=== PATIENT | male | born 1990 | race Caucasian/White ===

== ENCOUNTER 2017-10-29 12:34 | Emergency (ER) | payer OTHER ==
[2017-10-29 13:35] VITALS: BP 143/64; PULSE 87; RESP 15; TEMP 97
[2017-10-29] MEDS ORDERED: DIPH,PERTUS(ACELL)TETVAC-LF 0.5 ML VIAL IM ONE (13:53)
--- NOTE | 2017-10-29 14:11 | XR ---
EXAMINATION TYPE: XR knee complete LT DATE OF EXAM: 10/29/2017 COMPARISON: NONE HISTORY: Pain TECHNIQUE: Four views are submitted. FINDINGS: Joint spaces are preserved. Osseous structures are intact. No acute fracture seen. There is questi on of a tiny intracortical lesion measuring 5 mm within the distal diaphysis of the femur which could be associated with a benign fibrous cortical defect. IMPRESSION: 1. No acute fracture or dislocation.
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
== END 2017-10-29 14:28 | disposition home or self-care (01) ==
LOC: EC 12:34
DX: S81.012A Laceration without foreign body, left knee, initial encounter (principal); Z79.1 Long term (current) use of non-steroidal anti-inflammatories (NSAID); Z91.09 Other allergy status, other than to drugs and biological substances; Z23 Encounter for immunization; W26.0XXA Contact with knife, initial encounter; Y93.89 Activity, other specified; Y92.009 Unspecified place in unspecified non-institutional (private) residence as the place of occurrence of the external cause
CPT/HCPCS: 12001; 90471; 90715; 99283

== ENCOUNTER 2019-02-07 10:19 | Emergency (ER) | payer OTHER, BC ==
[2019-02-07 11:04] VITALS: RESP 18
--- NOTE | 2019-02-07 11:58 | XR ---
EXAMINATION TYPE: XR shoulder complete RT DATE OF EXAM: 02/07/2019 COMPARISON: NONE HISTORY: Pain TECHNIQUE: Shoulder examined in 3 views FINDINGS: The humeral head articulates with the glenoid. The acromio-clavicular junction is normal. No acute fractures or dislocations are evident. A follow up study can be performed 7-10 days from acute trauma for continued pain. IMPRESSION: 1. Normal three-view right Shoulder
--- NOTE | 2019-02-07 11:59 | XR ---
EXAMINATION TYPE: XR cervical spine comp DATE OF EXAM: 02/07/2019 COMPARISON: None HISTORY: Pain TECHNIQUE: Five-view cervical spine FINDINGS: Vertebral body alignment is normal. Disc heights are preserved. Vertebral body heights are preserved. There is some moderate right foraminal stenosis C3-4. No acute osseous abnormality is evident. IMPRESSION: 1. No acute osseous abnormality. 2. Moderate foraminal narrowing right C3-4 level
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
[2019-02-07 12:50] VITALS: BP 105/70; PULSE 68; TEMP 97.7
== END 2019-02-07 13:03 | disposition home or self-care (01) ==
LOC: EC 10:19
DX: S40.021A Contusion of right upper arm, initial encounter (principal); S50.311A Abrasion of right elbow, initial encounter; F17.200 Nicotine dependence, unspecified, uncomplicated; Z91.048 Other nonmedicinal substance allergy status; V28.4XXA Motorcycle driver injured in noncollision transport accident in traffic accident, initial encounter; Y93.55 Activity, bike riding; Y92.410 Unspecified street and highway as the place of occurrence of the external cause
CPT/HCPCS: 72050; 99284

== ENCOUNTER 2019-03-31 17:50 | Emergency (ER) | payer BC ==
[2019-03-31 18:02] VITALS: BP 128/84; PULSE 90; RESP 18; TEMP 98.6
[2019-03-31] MEDS ORDERED: LIDOCAINE 1% INJ 10MG/ML (20 ML MDV) SQ STA (18:30)
--- NOTE | 2019-03-31 18:57 | ED ---
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 Patient was to use cutting plastic with a razor when he cut his thumb. Patient denies any foreign body in wound, states that she did not break. Patient states that he washed out and cut with soap and water after initial laceration. Patient works that he then put Super Glue on wound and went to work. Patient states that the cut broke back open causing him to present to the ED. Patient states that last tetanus was last year. Patient denies any other complaints at this time. Denies any other injury. Systemic: Pt denies fatigue, fever/chills, rash. Pt denies weakness, night sweats, weight loss. Neuro: Pt denies headache, visual disturbances, syncope or pre-syncope. HEENT: Pt denies ocular discharge or irritation, otalgia, rhinorrhea, pharyngitis or notable lymphadenopathy. Cardiopulmonary: Pt denies chest pain, SOB, heart palpitations, dyspnea on exertion. Abdominal/GI: Pt denies abdominal pain, n/v/d. : Pt denies dysuria, burning w/ urination, frequency/urgency. Denies new onset urinary or bowel incontinence. MSK: Pt denies myalgia, loss of strength or function in extremities. Neuro: Pt denies new onset weakness, paresthesias. - Related Data Home Medications Medication Instructions Recorded Confirmed Ibuprofen [Motrin] 800 mg PO DAILY PRN 10/29/17 02/07/19 Allergies Allergy/AdvReac Type Severity Reaction Status Date / Time adhesive Allergy Rash/Hives Verified 03/31/19 18:02 Review of Systems ROS Statement: Those systems with pertinent positive or pertinent negative responses have been documented in the HPI. ROS Other: All systems not noted in ROS Statement are negative. Past Medical History Past Medical History: Hearing Disorder / Deafness History of Any Multi-Drug Resistant Organisms: None Reported Past Surgical History: Ear Surgery Additional Past Surgical History / Comment(s): eye Past Psychological History: No Psychological Hx Reported Smoking Status: Current every day smoker Past Alcohol Use History: Occasional Past Drug Use History: Marijuana General Exam - General Exam Comments Initial Comments: Constitutional: NAD, AOX3, Pt has pleasant affect. HEENT: NC/AT, trachea midline, neck supple, no lymphadenopathy. Posterior pharynx non erythematous, without exudates. External ears appear normal, without discharge. Mucous membranes moist. Eyes PERRLA, EOM intact. There is no scleral icterus. No pallor noted. Cardiopulmonary: RRR, no murmurs, rubs or gallops, no JVD noted. Lungs CTAB in anterior and posterior enrique. No peripheral edema. Abdominal exam: Abdomen soft and non-distended. Abdomen non-tender to palpation in all 4 quadrants. Bowel sounds active in LLQ. No hepatosplenomegaly. No ecchymosis Neuro: CN II-XII grossly intact. No nuchal rigidity. No raccon eyes, no thomason sign, no hemotympanum. No cervical spinal tenderness. MSK: 3 cm laceration noted lateral aspect of palmar left thumb. No ligamentous or bony involvement. There is irrigated with 500 mL normal saline. Full active range of motion of thumb. Flexion and extension intact at ITP joint. Flexion extension rotation intact at MCP joint. Approximated with 4 simple interrupted sutures. No posterior calf tenderness bilaterally, homans sign negative bilaterally. Posterior tibialis and radial pulse +2 bilaterally. Sensation intact in upper and lower extremities. Full active ROM in upper and lower extremities, 5/5 stregnth. Limitations: no limitations Course Vital Signs 03/31/19 17:59 Temperature 98.6 F Pulse Rate 90 Respiratory 18 Rate Blood Pressure 128/84 O2 Sat by Pulse 100 Oximetry Procedures - Laceration Laceration #1 Consent Obtained: verbal consent Indication: laceration Site: hand Size (cm): 3 Description: linear Depth: simple, single layer Anesthetic Used: lidocaine 1% Anesthesia Technique: local infiltration Amount (mls): 4 Pre-repair: wound explored, irrigated extensively (500mL NS ), deep structures intact (no osseous, ligamentous or bony involvement ) Type of Sutures: vicryl Size of Sutures: 5-0 Number of Sutures: 4 Medical Decision Making - Medical Decision Making 28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 Patient was to use cutting plastic with a razor when he cut his thumb. Patient denies any foreign body in wound, states that she did not break. Patient states that he washed out and cut with soap and water after initial laceration. Patient works that he then put Super Glue on wound and went to work. Patient states that the cut broke back open causing him to present to the ED. Patient states that last tetanus was last year. Patient denies any other complaints at this time. Denies any other injury. Patient vital signs stable, afebrile. Physical exam displayed: 3 cm laceration noted lateral aspect of palmar left thumb. No ligamentous or bony involvement. There is irrigated with 500 mL normal saline. Full active range of motion of thumb. Flexion and extension intact at ITP joint. Flexion extension rotation intact at MCP joint. Approximated with 4 simple interrupted sutures. He fell does not display acute pathology. Patient discharge, follow-up with primary care provider in 1-2 days. Patient returned for suture removal. Return precautions discussed, patient was understanding. Case discussed with Dr. Haider. Disposition Clinical Impression: Laceration Disposition: HOME SELF-CARE Condition: Stable Instructions (If sedation given, give patient instructions): Laceration (ED) Additional Instructions: Patient to adhere to previously discussed treatment plan and will take medication(s) as directed. Patient to follow up with PCP in 1-2 days. Patient to return to ED if symptoms do not improve. Please return for suture removal: Hand: 7-10 days Face: 5 days Chest/abdomen: 12-14 days Extremities: 7-10 days Scalp: 7 days Eyebrow: 5-7 days Foot/sole: 12-14 days Please monitor for signs and symptoms of infection including: redness, warmth, drainage, discharge. Please return to ED if these signs or symptoms occur, new signs or symptoms develop or if condition worsens in anyway. Is patient prescribed a controlled substance at d/c from ED?: No Referrals: None,Stated [Primary Care Provider] - 1-2 days
--- NOTE | 2019-03-31 19:15 | XR ---
EXAMINATION TYPE: XR hand complete LT DATE OF EXAM: 03/31/2019 COMPARISON: NONE HISTORY: Thumb laceration TECHNIQUE: 3 views FINDINGS: I see no fracture nor dislocation. Joint spaces are normal. There is no sign of a foreign b jeri. IMPRESSION: Negative left hand exam. Thumb appears intact.
== END 2019-03-31 20:20 | disposition home or self-care (01) ==
LOC: EC 17:50
DX: S61.012A Laceration without foreign body of left thumb without damage to nail, initial encounter (principal); H91.90 Unspecified hearing loss, unspecified ear; F17.200 Nicotine dependence, unspecified, uncomplicated; Z91.048 Other nonmedicinal substance allergy status; W26.8XXA Contact with other sharp object(s), not elsewhere classified, initial encounter; Y92.009 Unspecified place in unspecified non-institutional (private) residence as the place of occurrence of the external cause
CPT/HCPCS: 73130; 99283; 12002; J2001

== ENCOUNTER 2019-10-02 19:17 | Emergency (ER) | payer BC ==
[2019-10-02] MEDS ORDERED: LORazepam 2 MG/ML INJ IM STA ×2 (19:30→20:49)
[2019-10-02 20:20] LABS: Basophils % (A) 1 %; Eosinophils # (A) 0.1 k/uL (0-0.7); Eosinophils % (A) 2 %; HCT 43.8 % (39.0-53.0); HGB 14.7 gm/dL (13.0-17.5); Lymphocytes # (A) 2.4 k/uL (1.0-4.8); Lymphocytes % (A) 34 %; MCH 28.9 pg (25.0-35.0); MCHC 33.6 g/dL (31.0-37.0); MCV 86.1 fL (80.0-100.0); Mean Platelet Volume 6.9; Monocytes # (A) 0.4 k/uL (0-1.0); Monocytes % (A) 6 %; Neutrophils # (A) 3.8 k/uL (1.3-7.7); Neutrophils % (A) 55 %; Platelet Count 266 k/uL (150-450); RBC 5.09 m/uL (4.30-5.90); RDW 13.4 % (11.5-15.5); WBC 6.9 k/uL (3.8-10.6)
[2019-10-02 20:33] LABS: ALT 16 U/L (4-49); AST 24 U/L (17-59); Acetaminophen <10.0 ug/mL; African American GFR (CKD) >90 (>60 ml/min/1.73 sqM); Anion Gap 13 mmol/L; Blood Urea Nitrogen 11 mg/dL (9-20); Calcium 9.5 mg/dL (8.4-10.2); Carbon Dioxide 20 mmol/L (22-30); Chloride 109 mmol/L (98-107); Glucose 85 mg/dL (74-99); Non-African American GFR(CKD) >90 (>60 ml/min/1.73 sqM); Potassium 3.7 mmol/L (3.5-5.1); Sodium 142 mmol/L (137-145)
--- NOTE | 2019-10-02 20:34 | ED ---
Psych HPI - General Source: EMS Mode of arrival: EMS <Ha Gann - Last Filed: 10/02/19 20:53> <Jack Mariscal - Last Filed: 10/03/19 01:54> - General Chief Complaint: Psychiatric Symptoms Stated Complaint: Mental Health Time Seen by Provider: 10/02/19 19:26 - History of Present Illness Initial Comments: This 29-year-old white male presents via EMS after he apparently was drinking at home and then overdose. He apparently was drinking whiskey and took some temazepam. He apparently told the paramedics he only took 2 of the 7.5 mg pills. His however relates that the bottle is empty and there may have been up to 25 of these pills. He was somewhat apprehensive to coming to the hospital but did agree with the restraints with EMS. He apparently did voice some suicidal ideations to someone prehospital. Upon my evaluation he is very upset and wants to leave. He is not offering any significant degree of history. He is trying to walk out of the hospital. He apparently took a swing at one of the hospital guards. He barely does have a history and does present in his dress jacket holding with his ribbons aaron [place] flag with the army hat. EMS also relates that he may have a degree of posttraumatic stress disorder. Patient is not forthcoming with any history and therefore this is very limited and essentially obtained per EMS. (Ha Gann) - Related Data Home Medications Medication Instructions Recorded Confirmed Ibuprofen [Motrin] 800 mg PO DAILY PRN 10/29/17 02/07/19 Allergies Allergy/AdvReac Type Severity Reaction Status Date / Time adhesive Allergy Rash/Hives Verified 03/31/19 18:02 Review of Systems ROS Other: All systems not noted in ROS Statement are negative. <Ha Gann - Last Filed: 10/02/19 20:53> ROS Other: All systems not noted in ROS Statement are negative. <Jack Mariscal - Last Filed: 10/03/19 01:54> ROS Statement: Those systems with pertinent positive or pertinent negative responses have been documented in the HPI. Past Medical History Past Medical History: Hearing Disorder / Deafness History of Any Multi-Drug Resistant Organisms: None Reported Past Surgical History: Ear Surgery Additional Past Surgical History / Comment(s): eye Past Psychological History: No Psychological Hx Reported Smoking Status: Current every day smoker Past Alcohol Use History: Occasional Past Drug Use History: Marijuana <Ha Gann - Last Filed: 10/02/19 20:53> General Exam <Ha Gann - Last Filed: 10/02/19 20:53> - General Exam Comments Initial Comments: GENERAL: The patient is well nourished and well hydrated. VITAL SIGNS: Heart rate, blood pressure, respiratory rate reviewed as recorded in nurse's notes. EYES: Pupils are round and reactive. Extraocular movements are intact. No conjunctival / lid redness or swelling. ENT: No external evidence of injury, swelling, or ecchymosis. Airway is patent. Throat is clear. NECK: Nontender. No swelling or evidence of injury. No subcutaneous emphysema. Trachea is midline. No thyroid mass. HEART: Regular rate and rhythm. Good peripheral pulses. LUNGS/CHEST: Breath sounds clear and equal bilaterally. No rales, rhonchi, or wheezes. No ecchymosis, subcutaneous emphysema, or tenderness. ABDOMEN: Abdomen soft without tenderness. No palpable masses or organomegaly. No peritoneal signs. No abdominal wall swelling or ecchymosis. EXTREMITIES: No extremity tenderness. Normal muscle tone and function. No thoracolumbar tenderness. NEUROLOGIC: Sensation is grossly intact. Cranial nerve exam reveals face is symmetrical, tongue is midline, speech is clear. SKIN: No abrasions or ecchymosis is noted. No induration or masses noted. PSYCHIATRIC: alert but quite agitated. He is not very cooperative with examination and discussion. He later becomes extremely agitated stating that he wants to go home and is swinging at the staff and screaming. (Ha Gann) Course Vital Signs 10/02/19 10/02/19 10/03/19 21:13 23:00 01:20 Temperature 98.1 F Pulse Rate 82 73 81 Respiratory 17 16 17 Rate Blood Pressure 88/81 93/53 90/53 O2 Sat by Pulse 98 99 99 Oximetry Medical Decision Making - Lab Data Result diagrams: 10/02/19 19:59 10/02/19 19:59 <Ha Gann - Last Filed: 10/02/19 20:53> - Lab Data Result diagrams: 10/02/19 19:59 10/02/19 19:59 <Jack Mariscal - Last Filed: 10/03/19 01:54> - Medical Decision Making the patient was seen and examined. Diagnostics were ordered. His alcohol level came back elevated. the EKG shows a normal sinus rhythm at a rate of 94. There is no acute ST-T wave changes identified. The IN intervals 180, the QRS duration is 88, and the QTC intervals 455. He initially tried to walk out and the staff was able to talk to him to come back to get evaluated. He later became extremely agitated and apparently swung at one of the staff. He was physically restrained. 2 mg of Ativan was ordered due to the significant degree of agitation. The EKG was done which shows a normal sinus rhythm with no acute ST-T wave changes. The IN, QRS and QTC intervals were all within normal limits. Elopement precautions were taken. At this point in time, it appears that he is intoxicated. There certainly may be underlying psychiatric problems including suicidal ideations and depression. It is felt as though further sobering as necessary and psychiatry is also consulted. the patient did require physical restraints. Repeat examination approximately one hour after physical restraints were applied does show that the patient still is extremely agitated. He receives another 2 mg of Ativan IM. Restraints are continued at this time. Further care is deferred to oncoming physician. (Ha Gann) - Lab Data Lab Results 10/02/19 10/02/19 10/02/19 Range/Units 19:59 19:59 19:59 WBC 6.9 (3.8-10.6) k/uL RBC 5.09 (4.30-5.90) m/uL Hgb 14.7 (13.0-17.5) gm/dL Hct 43.8 (39.0-53.0) % MCV 86.1 (80.0-100.0) fL MCH 28.9 (25.0-35.0) pg MCHC 33.6 (31.0-37.0) g/dL RDW 13.4 (11.5-15.5) % Plt Count 266 (150-450) k/uL Neutrophils % 55 % Lymphocytes % 34 % Monocytes % 6 % Eosinophils % 2 % Basophils % 1 % Neutrophils # 3.8 (1.3-7.7) k/uL Lymphocytes # 2.4 (1.0-4.8) k/uL Monocytes # 0.4 (0-1.0) k/uL Eosinophils # 0.1 (0-0.7) k/uL Basophils # 0.0 (0-0.2) k/uL Sodium 142 (137-145) mmol/L Potassium 3.7 (3.5-5.1) mmol/L Chloride 109 H (98-107) mmol/L Carbon Dioxide 20 L (22-30) mmol/L Anion Gap 13 mmol/L BUN 11 (9-20) mg/dL Creatinine 0.97 (0.66-1.25) mg/dL Est GFR (CKD-EPI)AfAm >90 (>60 ml/min/1.73 sqM) Est GFR (CKD-EPI)NonAf >90 (>60 ml/min/1.73 sqM) Glucose 85 (74-99) mg/dL Calcium 9.5 (8.4-10.2) mg/dL AST 24 (17-59) U/L ALT 16 (4-49) U/L Salicylates 1.0 mg/dL Urine Opiates Screen Not Detected (NotDetected) Ur Oxycodone Screen Not Detected (NotDetected) Urine Methadone Screen Not Detected (NotDetected) Ur Propoxyphene Screen Not Detected (NotDetected) Acetaminophen <10.0 ug/mL Ur Barbiturates Screen Not Detected (NotDetected) U Tricyclic Antidepress Not Detected (NotDetected) Ur Phencyclidine Scrn Not Detected (NotDetected) Ur Amphetamines Screen Not Detected (NotDetected) U Methamphetamines Scrn Not Detected (NotDetected) U Benzodiazepines Scrn Detected H (NotDetected) Urine Cocaine Screen Not Detected (NotDetected) U Marijuana (THC) Screen Detected H (NotDetected) Serum Alcohol 173 mg/dL Disposition <Ha Gann - Last Filed: 10/02/19 20:53> Is patient prescribed a controlled substance at d/c from ED?: No <Jack Mariscal - Last Filed: 10/03/19 01:54> Clinical Impression: Depression, Suicidal ideation, Alcohol intoxication Disposition: HOME SELF-CARE Condition: Fair Referrals: Chepe Jerez MD [Primary Care Provider] - 1-2 days
[2019-10-02 20:44] LABS: Alcohol 173 mg/dL
[2019-10-02 20:57] LABS: Amphetamine Screen,Urine Not Detected (NotDetected); Barbiturate Screen,Urine Not Detected (NotDetected); Benzodiazepines Screen,Urine Detected (NotDetected); Cocaine Screen,Urine Not Detected (NotDetected); Methadone Screen, Urine Not Detected (NotDetected); Opiate Screen,Urine Not Detected (NotDetected); Oxycodone Screen, Urine Not Detected (NotDetected); Phencyclidine Screen,Urine Not Detected (NotDetected); Tricyclic Antidepressant,Urine Not Detected (NotDetected); Urn Cannabinoid Scrn Detected (NotDetected)
[2019-10-02] MEDS ORDERED: SODIUM CHLORIDE 0.9% 1,000 ML IV STA (23:06)
[2019-10-03 02:26] VITALS: BP 101/62; PULSE 78; RESP 18; TEMP 97.8
== END 2019-10-03 02:26 | disposition home or self-care (01) ==
LOC: EC 19:17
DX: F32.9 Major depressive disorder, single episode, unspecified (principal); F10.129 Alcohol abuse with intoxication, unspecified; R45.851 Suicidal ideations; F17.200 Nicotine dependence, unspecified, uncomplicated; Z91.048 Other nonmedicinal substance allergy status; Z53.8 Procedure and treatment not carried out for other reasons; Z78.1 Physical restraint status
CPT/HCPCS: 82075; 36415; 93005; 80048; 84450; 84460; 85025; 80306; 83520; 80329; 80320; 99285; 96360; 96361 ×2; 96372; J2060

== ENCOUNTER 2019-10-03 18:43 | Inpatient (IN) | payer OTHER, BC ==
--- NOTE | 2019-10-03 19:28 | ED ---
Psych HPI - General Source: patient, RN notes reviewed, old records reviewed Mode of arrival: ambulatory - History of Present Illness MD Complaint: suicidal ideation, feels depressed -: days(s) Associated Psychiatric Symptoms: depression, suicidal ideation History of same: Yes Quality: constant Improves With: none Worsens With: none Context: recent alcohol abuse Associated Symptoms: denies other symptoms Treatments Prior to Arrival: placed on mental health hold If Self Harm: admits thoughts of self harm <Ramana Chavez - Last Filed: 10/03/19 20:59> <Ha Roach - Last Filed: 10/04/19 00:52> - General Chief Complaint: Psychiatric Symptoms Stated Complaint: EPS eval Time Seen by Provider: 10/03/19 19:00 - History of Present Illness Initial Comments: This is a 29-year-old male the ER for evaluation presents [facility] psychi atric: Her department yesterday but does not remember being in the department severely intoxicated and took an overdose on temazepam yesterday. Patient presents today for evaluation of sick illness denying to overdosed today. Patient was at home last night. He remains suicidal here in the ER he did cut himself today. No drugs or alcohol prior to arrival (Ramana Chavez) - Related Data Home Medications Medication Instructions Recorded Confirmed Ibuprofen [Motrin] 800 mg PO DAILY PRN 10/29/17 10/03/19 Allergies Allergy/AdvReac Type Severity Reaction Status Date / Time adhesive Allergy Rash/Hives Verified 10/03/19 22:28 Review of Systems ROS Other: All systems not noted in ROS Statement are negative. <Ramana Chavez - Last Filed: 10/03/19 20:59> ROS Other: All systems not noted in ROS Statement are negative. <Ha Roach - Last Filed: 10/04/19 00:52> ROS Statement: Those systems with pertinent positive or pertinent negative responses have been documented in the HPI. Past Medical History Past Medical History: Hearing Disorder / Deafness History of Any Multi-Drug Resistant Organisms: None Reported Past Surgical History: Ear Surgery Additional Past Surgical History / Comment(s): eye Past Psychological History: No Psychological Hx Reported Smoking Status: Current every day smoker Past Alcohol Use History: Occasional Past Drug Use History: Marijuana <Ramana Chavez - Last Filed: 10/03/19 20:59> General Exam Limitations: no limitations General appearance: alert, in no apparent distress Head exam: Present: atraumatic, normocephalic, normal inspection Eye exam: Present: normal appearance, PERRL, EOMI. Absent: scleral icterus, conjunctival injection, periorbital swelling ENT exam: Present: normal exam, mucous membranes moist Neck exam: Present: normal inspection. Absent: tenderness, meningismus, lymphadenopathy Respiratory exam: Present: normal lung sounds bilaterally. Absent: respiratory distress, wheezes, rales, rhonchi, stridor Cardiovascular Exam: Present: normal rhythm, tachycardia, normal heart sounds. Absent: systolic murmur, diastolic murmur, rubs, gallop, clicks GI/Abdominal exam: Present: soft, normal bowel sounds. Absent: distended, tenderness, guarding, rebound, rigid Extremities exam: Present: normal inspection, full ROM, normal capillary refill. Absent: tenderness, pedal edema, joint swelling, calf tenderness Back exam: Present: normal inspection Neurological exam: Present: alert, oriented X3, CN II-XII intact Psychiatric exam: Present: normal affect, normal mood Skin exam: Present: warm, dry, intact, normal color. Absent: rash <Ramana Chavez - Last Filed: 10/03/19 20:59> Course <Ramana Chavez - Last Filed: 10/03/19 20:59> Vital Signs 10/03/19 10/03/19 18:55 23:05 Temperature 98.3 F 98.3 F Pulse Rate 114 H 76 Respiratory 16 16 Rate Blood Pressure 137/73 108/61 O2 Sat by Pulse 97 96 Oximetry - Reevaluation(s) Reevaluation #1: 10/03/19 21:01 Medical clear for psychiatric evaluation (Ramana Chavez) Medical Decision Making - Lab Data Result diagrams: 10/03/19 22:24 10/03/19 22:24 <Ha Roach - Last Filed: 10/04/19 00:52> - Medical Decision Making 29-year-old male post care was signed out at shift change awaiting EPS evaluation for depression, suicidal ideation and suicide attempt. Patient did cut his left wrist and states he took some medication and attempt overdose. This was greater than 12 hours prior to arrival. He is alert and oriented. He is medically cleared and evaluated by EPS. He will be admitted to this institution for further psychiatric evaluation and treatment. (Ha Roach) - Lab Data Lab Results 10/03/19 10/03/19 Range/Units 22:24 22:24 WBC 9.9 (3.8-10.6) k/uL RBC 4.76 (4.30-5.90) m/uL Hgb 14.6 (13.0-17.5) gm/dL Hct 41.1 (39.0-53.0) % MCV 86.4 (80.0-100.0) fL MCH 30.8 (25.0-35.0) pg MCHC 35.6 (31.0-37.0) g/dL RDW 13.5 (11.5-15.5) % Plt Count 276 (150-450) k/uL Neutrophils % 63 % Lymphocytes % 28 % Monocytes % 6 % Eosinophils % 2 % Basophils % 1 % Neutrophils # 6.2 (1.3-7.7) k/uL Lymphocytes # 2.7 (1.0-4.8) k/uL Monocytes # 0.6 (0-1.0) k/uL Eosinophils # 0.2 (0-0.7) k/uL Basophils # 0.1 (0-0.2) k/uL Sodium 139 (137-145) mmol/L Potassium 3.7 (3.5-5.1) mmol/L Chloride 106 (98-107) mmol/L Carbon Dioxide 22 (22-30) mmol/L Anion Gap 11 mmol/L BUN 13 (9-20) mg/dL Creatinine 0.91 (0.66-1.25) mg/dL Est GFR (CKD-EPI)AfAm >90 (>60 ml/min/1.73 sqM) Est GFR (CKD-EPI)NonAf >90 (>60 ml/min/1.73 sqM) Glucose 87 (74-99) mg/dL Calcium 9.4 (8.4-10.2) mg/dL Total Bilirubin 0.9 (0.2-1.3) mg/dL AST 25 (17-59) U/L ALT 17 (4-49) U/L Alkaline Phosphatase 73 (38-126) U/L Total Protein 7.0 (6.3-8.2) g/dL Albumin 4.1 (3.5-5.0) g/dL Salicylates <1.0 mg/dL Acetaminophen <10.0 ug/mL Serum Alcohol <10 mg/dL Disposition <Ramana Chavez - Last Filed: 10/03/19 20:59> Is patient prescribed a controlled substance at d/c from ED?: No Decision to Admit Reason: Admit from EC Decision Date: 10/04/19 Decision Time: 00:52 <Ha Roach - Last Filed: 10/04/19 00:52> Clinical Impression: Suicidal ideation, Depression Disposition: ADMITTED IP TO THIS HOSP Condition: Stable Referrals: Chepe Jerez MD [Primary Care Provider] - 1-2 days
[2019-10-03 22:41] LABS: Basophils # (A) 0.1 k/uL (0-0.2); Basophils % (A) 1 %; Eosinophils # (A) 0.2 k/uL (0-0.7); Eosinophils % (A) 2 %; HCT 41.1 % (39.0-53.0); HGB 14.6 gm/dL (13.0-17.5); Lymphocytes # (A) 2.7 k/uL (1.0-4.8); Lymphocytes % (A) 28 %; MCH 30.8 pg (25.0-35.0); MCHC 35.6 g/dL (31.0-37.0); MCV 86.4 fL (80.0-100.0); Mean Platelet Volume 6.8; Monocytes # (A) 0.6 k/uL (0-1.0); Monocytes % (A) 6 %; Neutrophils # (A) 6.2 k/uL (1.3-7.7); Neutrophils % (A) 63 %; Platelet Count 276 k/uL (150-450); RBC 4.76 m/uL (4.30-5.90); RDW 13.5 % (11.5-15.5); WBC 9.9 k/uL (3.8-10.6)
[2019-10-03 22:49] LABS: ALT 17 U/L (4-49); AST 25 U/L (17-59); Acetaminophen <10.0 ug/mL; African American GFR (CKD) >90 (>60 ml/min/1.73 sqM); Albumin 4.1 g/dL (3.5-5.0); Alcohol <10 mg/dL; Alkaline Phosphatase 73 U/L (38-126); Anion Gap 11 mmol/L; Blood Urea Nitrogen 13 mg/dL (9-20); Calcium 9.4 mg/dL (8.4-10.2); Carbon Dioxide 22 mmol/L (22-30); Chloride 106 mmol/L (98-107); Glucose 87 mg/dL (74-99); Non-African American GFR(CKD) >90 (>60 ml/min/1.73 sqM); Potassium 3.7 mmol/L (3.5-5.1); Salicylate <1.0 mg/dL; Sodium 139 mmol/L (137-145); Total Bilirubin 0.9 mg/dL (0.2-1.3)
[2019-10-04] MEDS ORDERED: MAG HYDROX/AL HYDROX/SIMETH 30 ML CUP PO PRN (03:58)
[2019-10-04] MEDS ORDERED: MAGNESIUM HYDROXIDE 2,400 MG/10 ML CUP PO PRN (03:58)
[2019-10-04] MEDS ORDERED: LORazepam 1 MG TAB PO PRN (03:58)
[2019-10-04] MEDS ORDERED: ZIPRASIDONE 20 MG VIAL IM PRN (03:58)
[2019-10-04] MEDS: NICOTINE 14MG/24HR PATCH TRANSDERM SCH (09:27)
--- NOTE | 2019-10-04 11:01 | P.CONS ---
History of Present Illness - History of Present Illness 29-year-old male was admitted to the emergency room to the mental health unit. This is the second visit this week. Patient states she's going through divorce. Patient history of chronic back pain from injury. Patient also has hearing deficits.. Patient is smoker. Patient stated he took medication and has a superficial laceration to his left wrist Review of Systems Musculoskeletal: Reports low back pain Psychiatric: Reports depression, Reports hopelessness, Reports suicidal ideation Past Medical History Past Medical History: Hearing Disorder / Deafness History of Any Multi-Drug Resistant Organisms: None Reported Past Surgical History: Ear Surgery Additional Past Surgical History / Comment(s): eye Past Psychological History: No Psychological Hx Reported Smoking Status: Current every day smoker Past Alcohol Use History: Occasional Past Drug Use History: Marijuana Medications and Allergies Home Medications Medication Instructions Recorded Confirmed Type Ibuprofen [Motrin] 800 mg PO DAILY PRN 10/29/17 10/04/19 History Allergies Allergy/AdvReac Type Severity Reaction Status Date / Time adhesive Allergy Rash/Hives Verified 10/04/19 07:07 Physical Exam Vitals: Vital Signs Temp Pulse Pulse Resp BP BP Pulse Ox 10/04/19 04:33 98.2 F 65 14 119/73 97 10/03/19 23:05 98.3 F 76 16 108/61 96 10/03/19 18:55 98.3 F 114 H 16 137/73 97 Intake and Output 10/03/19 10/04/19 10/04/19 22:59 06:59 14:59 Other: Weight 99.79 kg 97.097 kg - Constitutional General appearance: mild distress - EENT Eyes: PERRLA ENT: hard of hearing - Neck Neck: normal ROM - Respiratory Respiratory: bilateral: CTA - Cardiovascular Rhythm: regular - Gastrointestinal General gastrointestinal: soft - Integumentary Integumentary: normal - Neurologic Neurologic: CNII-XII intact - Musculoskeletal Musculoskeletal: gait normal - Psychiatric Flat affect no eye contact. Said demeanor Psychiatric: A&O x's 3 Results CBC & Chem 7: 10/03/19 22:24 10/03/19 22:24 Assessment and Plan Plan: Assessment Suicidal ideation with major depression History of chronic back pain injury Smoker Hearing deficit Plan We'll monitor patient
[2019-10-04] MEDS: IBUPROFEN 800 MG TAB PO PRN ×2 (13:37→21:07)
[2019-10-04] MEDS ORDERED: MELATONIN 3 MG TABLET PO PRN (14:26)
--- NOTE | 2019-10-04 15:00 | P.HP ---
Psychiatric H&P - . H&P Date: 10/04/19 History & Physical: Allergies Allergy/AdvReac Type Severity Reaction Status Date / Time adhesive Allergy Rash/Hives Verified 10/04/19 07:07 Vital Signs Temp 98.2 F 10/04/19 04:33 Pulse 65 10/04/19 04:33 Resp 14 10/04/19 04:33 BP 119/73 10/04/19 04:33 Pulse Ox 97 10/04/19 04:33 Intake & Output 10/03/19 10/04/19 10/04/19 18:59 06:59 18:59 Weight 99.79 kg 97.097 kg Laboratory Last Values WBC 9.9 k/uL (3.8-10.6) 10/03/19 22:24 RBC 4.76 m/uL (4.30-5.90) 10/03/19 22:24 Hgb 14.6 gm/dL (13.0-17.5) 10/03/19 22:24 Hct 41.1 % (39.0-53.0) 10/03/19 22:24 MCV 86.4 fL (80.0-100.0) 10/03/19 22:24 MCH 30.8 pg (25.0-35.0) 10/03/19 22:24 MCHC 35.6 g/dL (31.0-37.0) 10/03/19 22:24 RDW 13.5 % (11.5-15.5) 10/03/19 22:24 Plt Count 276 k/uL (150-450) 10/03/19 22:24 Neutrophils % 63 % 10/03/19 22:24 Lymphocytes % 28 % 10/03/19 22:24 Monocytes % 6 % 10/03/19 22:24 Eosinophils % 2 % 10/03/19 22:24 Basophils % 1 % 10/03/19 22:24 Neutrophils # 6.2 k/uL (1.3-7.7) 10/03/19 22:24 Lymphocytes # 2.7 k/uL (1.0-4.8) 10/03/19 22:24 Monocytes # 0.6 k/uL (0-1.0) 10/03/19 22:24 Eosinophils # 0.2 k/uL (0-0.7) 10/03/19 22:24 Basophils # 0.1 k/uL (0-0.2) 10/03/19 22:24 Sodium 139 mmol/L (137-145) 10/03/19 22:24 Potassium 3.7 mmol/L (3.5-5.1) 10/03/19 22:24 Chloride 106 mmol/L (98-107) 10/03/19 22:24 Carbon Dioxide 22 mmol/L (22-30) 10/03/19 22:24 Anion Gap 11 mmol/L 10/03/19 22:24 BUN 13 mg/dL (9-20) 10/03/19 22:24 Creatinine 0.91 mg/dL (0.66-1.25) 10/03/19 22:24 Est GFR (CKD-EPI)AfAm >90 (>60 ml/min/1.73 sqM) 10/03/19 22:24 Est GFR (CKD-EPI)NonAf >90 (>60 ml/min/1.73 sqM) 10/03/19 22:24 Glucose 87 mg/dL (74-99) 10/03/19 22:24 Calcium 9.4 mg/dL (8.4-10.2) 10/03/19 22:24 Total Bilirubin 0.9 mg/dL (0.2-1.3) 10/03/19 22:24 AST 25 U/L (17-59) 10/03/19 22:24 ALT 17 U/L (4-49) 10/03/19 22:24 Alkaline Phosphatase 73 U/L (38-126) 10/03/19 22:24 Total Protein 7.0 g/dL (6.3-8.2) 10/03/19 22:24 Albumin 4.1 g/dL (3.5-5.0) 10/03/19 22:24 Salicylates <1.0 mg/dL 10/03/19 22:24 Acetaminophen <10.0 ug/mL 10/03/19 22:24 Serum Alcohol <10 mg/dL 10/03/19 22:24 10/04/19 14:50 IDENTIFYING DATA: Patient is a 29-year-old male who currently lives with his ex-, has 5 kids and works as a preventative maintenance technician. HPI: Patient presented to the hospital twice this past week, initially for intoxication and a legitimate overdose on temazepam and was discharged home after evaluation and returned the next day with increase in depression and suicidal ideations. Patient claims that he has been feeling an increase in his depression and anxiety for the past week and also suicidal thoughts as he cut his wrist in a suicide attempt earlier. Patient claims that he was in the [employer] in 2009 until 2013 in [facility] and was in active combat. He claims that since 2012 he has been feeling depressed and having PTSD symptoms including anxiety and intrusive thoughts. Patient claims that "I feel very low and mid dumb decisions". Patient spoke about going through a divorce at this time with his and they have been split since August and have been trying to work on their relationship since then. He states that "she is in love with her ask and is nothing I can do about it". Patient has poor eye contact and a depressed affect. He denies any guns or weapons in the dose. He was concerned and preoccupied during the interview about "losing my family". He endorsed anxiety, guilt, PTSD symptoms including recurring thoughts and nightmares night nightly. He states he gets 1-2 hours of sleep per night. Patient denies any suicidal or homicidal ideations intent or plan. At this time patient denies any auditory or visual hallucinations. Patient admits to using alcohol in the past couple of days, increasing his drinking of whiskey. He states that his last drink was 2 nights ago. He admits to smoking cigarettes daily and smoking marijuana daily, greater than 1 joint per day. PAST PSYCHIATRIC HISTORY: Patient states that he has never seen a psychiatrist before. Patient claims that he was following up at the [facility] this primary care physician who was giving him temazepam for sleep. Patient denies any previous psychiatric admits in the past. He denies any suicide attempts in the past. PMH: Hearing disorder, chronic pain ALLERGIES: as per EMR CHEMICAL DEPENDENCY HISTORY: as per HPI FAMILY PSYCHIATRIC/SUBSTANCE USE HISTORY: States that depression is prevalent in his family. SOCIAL HISTORY: He claims that he was born and raised in [place] [facility] and currently is working on his associates degree in [employer] and electrical engineering at [employer]. Patient states that he was in the [employer] from 2009 2013 and served in [facility] and was an active combat. MENTAL STATUS EXAM: General Appearance: [Patient appears to be stated age is alert, attempts to cooperate and has poor hygiene and grooming. Patient has poor eye contact looking at the ground and slouched over.] Behavior: Patient is calmly seated without any agitated behavior. Speech: Patient's speech is fluent and nonpressured. Soft-spoken. Mood/Affect: Patient reports their mood is [depressed] and anxious, affect is congruent and constricted. Suicidality/Homicidality: Patient denies having any suicidal or homicidal ideation intent or plan. Perceptions: Patient denies any auditory or visual hallucinations. Though content/process: There is no evidence of any delusional thought content and thought process is linear and goal-directed. Patient is preoccupied about losing his family. [place]. Memory and concentration: AOX3, grossly intact for the purposes of this session. Can spell "WORLD" backwards Judgment and insight: poor/impulsive. STRENGTHS/WEAKNESSES: strength is that patient is resilient, weaknesses that patient is impulsive and has poor judgment. INTELLECT: average IMPRESSIONS: Major depressive disorder, without psychotic features History of PTSD Alcohol abuse Cannabis use disorder Nicotine dependence PLAN: -Patient is admitted under voluntary status to MHU for stabilization of psychiatric symptoms and safety. Patient signed adult voluntary form and medication consent and is placed in patient's chart. -Medications : Will start patient on Zoloft 50 mg daily for mood/anxiety, trazodone 50 mg daily at bedtime for insomnia/mood. We'll also start melatonin when necessary for sleep. -Ativan and Geodon PRN for agitation/aggression -CIWA for etoh w/d -awaiting UDS -Patient was informed of the risks, benefits and side effects of the medication and patient verbally consented to taking the medications. Patient signed med consent form and was placed in chart. -NRT - nicotine patch - on board for discharge planning 10/04/19 15:00
[2019-10-04] MEDS: SERTRALINE 50 MG TAB PO SCH (15:46)
[2019-10-04] MEDS: traZODone HCL 50 MG TAB PO SCH (21:07)
[2019-10-05 06:56] VITALS: RESP 16
[2019-10-05] MEDS: NICOTINE 14MG/24HR PATCH TRANSDERM SCH (08:34)
[2019-10-05] MEDS: SERTRALINE 50 MG TAB PO SCH (08:34)
[2019-10-05] MEDS: IBUPROFEN 800 MG TAB PO PRN ×2 (08:37→20:55)
[2019-10-05 11:20] LABS: Bilirubin, Delta 0.2 mg/dL (0.0-0.2); Bilirubin,Unconjugated 0.5 mg/dL (0.0-1.1); Total Bilirubin 0.7 mg/dL (0.2-1.3); Total Protein 7.1 g/dL (6.3-8.2)
[2019-10-05] MEDS: BACITRACIN 500 UNIT/GM OINT 28.4 GM TUBE TOPICAL SCH ×2 (11:42→20:55)
--- NOTE | 2019-10-05 13:52 | P.PN ---
Progress Note - Text Progress Note Date: 10/05/19 Subjective: Patient was seen taking part in group after lunch and was agreeable to speak to instructional writer in the office. Patient states that he feels his anxiety and mood have been gradually improving on the current medication and states that "I actually got a much better sleep last night". He states that he awoke once and was having recurring thoughts related to his PTSD and trauma however claims that he is able to go back to sleep and was awakened in the morning for vitals and for breakfast. Patient reflected back on how he was when he came into the hospital and how now he states that he is much more "calmer" and states that "I don't want to do anything down at home that's why need to work on myself". Patient spoke about his main motivation being his kids to get better. Patient asked about potential discharge soon. He states that he's been going to groups has a fair appetite. He did claim that he did feel mild nausea from the Zoloft and wants to continue at the same dose at this time. At this time patient denies any suicidal or homicidal ideations, intent or plan. Patient denies any auditory or visual hallucinations and does not endorse any paranoia. MENTAL STATUS EXAM: General Appearance: Patient appears to be stated age is alert, attempts to cooperate and has improving hygiene and grooming. Patient has improving eye contact. Behavior: Patient is calmly seated without any agitated behavior. Speech: Patient's speech is fluent and nonpressured. Soft-spoken. Mood/Affect: Patient reports their mood is depressed and anxious, mildly improving, affect is congruent and constricted. Suicidality/Homicidality: Patient denies having any suicidal or homicidal ideation intent or plan. Perceptions: Patient denies any auditory or visual hallucinations. Though content/process: There is no evidence of any delusional thought content and thought process is linear and goal-directed. More future oriented. Memory and concentration: AOX3, grossly intact for the purposes of this session. Can spell "WORLD" backwards Judgment and insight: poor/impulsive, mildly improving. Assessment: Major depressive disorder, without psychotic features History of PTSD Alcohol abuse Cannabis use disorder Nicotine dependence PLAN: -Patient is admitted under voluntary status to [facility] for stabilization of psychiatric symptoms and safety. Patient signed adult voluntary form and medication consent and is placed in patient's chart. -Medications : Will continue with Zoloft 50 mg daily for mood/anxiety, continue with trazodone 50 mg daily at bedtime for insomnia/mood. Continue with melatonin when necessary for sleep. -Ativan and Geodon PRN for agitation/aggression -CIWA for etoh w/d. Vital signs appear to be stable. -Antibiotic ointment for self-inflicted wound on arm. -NRT - nicotine patch -SW on board for discharge planning. Likely discharge back home in 2-3 days.
[2019-10-05 17:12] LABS: Amorphous Sediment,Urine Rare /hpf; Appearance,Urine Cloudy (Clear); Bacteria,Urine Rare /hpf; Bilirubin,Urine Negative (Negative); Blood,Urine Negative (Negative); Color,Urine Yellow; Glucose,Urine (UA) Negative (Negative); Ketones,Urine Trace (Negative); Leukocyte Esterase,Urine Negative (Negative); Mucus,Urine Few /hpf; Nitrite,Urine Negative (Negative); Protein,Urine 1+ (Negative); RBC,Urine 5 /hpf (0-5); Specific Gravity,Urine 1.035 (1.001-1.035); WBC,Urine 3 /hpf (0-5)
[2019-10-05 19:12] LABS: Hemoglobin A1C 4.8 % (4.0-6.0)
[2019-10-05] MEDS: traZODone HCL 50 MG TAB PO SCH (20:55)
[2019-10-06] MEDS: NICOTINE 14MG/24HR PATCH TRANSDERM SCH (08:00)
[2019-10-06] MEDS: BACITRACIN 500 UNIT/GM OINT 28.4 GM TUBE TOPICAL SCH (08:00)
[2019-10-06] MEDS: SERTRALINE 50 MG TAB PO SCH (08:00)
[2019-10-06] MEDS: IBUPROFEN 800 MG TAB PO PRN (08:00)
[2019-10-06] MEDS: ACETAMINOPHEN TAB 325 MG TAB PO PRN ×2 (10:51→21:30)
[2019-10-06] MEDS ORDERED: SERTRALINE 50 MG TAB PO ONE (11:00)
--- NOTE | 2019-10-06 11:31 | P.PN ---
Progress Note - Text Progress Note Date: 10/06/19 Subjective: Patient was seen after morning group and was agreeable to speak to telegraphic typewriter operator in the office. Patient states that he feels his anxiety and mood have been gradually improving however states that yesterday he had a setback. He states that his and mother came to visit him during visitation hours. He states that the visit with his mom went well and she is supportive however with his he claims that it is difficult to see her and know that they are proceeding with a divorce. He spoke about their relationship further and the difficulties they have endured. He claims that "she is my rock and now I don't have anybody". Patient claims that he is trying to take care of himself so he can care for his kids. Patient spoke about trying to go to groups and participate as best as he can. He states that he is eating well. He claims that he slept poorly last night and was requesting to have his medications increased at this time. Patient spoke about his main motivation being his kids to get better. At this time patient denies any suicidal or homicidal ideations, intent or plan. Patient denies any auditory or visual hallucinations and does not endorse any paranoia. MENTAL STATUS EXAM: General Appearance: Patient appears to be stated age is alert, attempts to cooperate and has improving hygiene and grooming. Patient has fair eye contact. Behavior: Patient is calmly seated without any agitated behavior. Speech: Patient's speech is fluent and nonpressured. Soft-spoken. Mood/Affect: Patient reports their mood is depressed and anxious, mildly improving, affect is congruent and depressed affect. Suicidality/Homicidality: Patient denies having any suicidal or homicidal ideation intent or plan. Perceptions: Patient denies any auditory or visual hallucinations. Though content/process: There is no evidence of any delusional thought content and thought process is linear and goal-directed. Preoccupied with his divorce and struggles in his relationship. Memory and concentration: AOX3, grossly intact for the purposes of this session. Can spell "WORLD" backwards Judgment and insight: poor, mildly improving. Assessment: Major depressive disorder, without psychotic features History of PTSD Alcohol abuse Cannabis use disorder Nicotine dependence PLAN: -Patient is admitted under voluntary status to [facility] for stabilization of psychiatric symptoms and safety. Patient signed adult voluntary form and medication consent and is placed in patient's chart. -Medications : Will increase Zoloft 100 mg daily for mood/anxiety, increase trazodone 100 mg daily at bedtime for insomnia/mood. Continue with melatonin when necessary for sleep. -Ativan and Geodon PRN for agitation/aggression -CIWA will be discontinued at this time. Vital signs appear to be stabilized. -Antibiotic ointment for self-inflicted wound on arm. -NRT - nicotine patch -SW on board for discharge planning. Likely discharge back home early next week.
[2019-10-06] MEDS: IBUPROFEN 800 MG TAB PO SCH ×2 (12:39→18:05)
[2019-10-06] MEDS: traZODone HCL 100 MG TAB PO SCH (21:30)
[2019-10-07] MEDS: BACITRACIN 500 UNIT/GM OINT 28.4 GM TUBE TOPICAL SCH ×3 (03:03→21:49)
[2019-10-07] MEDS: IBUPROFEN 800 MG TAB PO SCH ×3 (08:44→16:59)
[2019-10-07] MEDS: NICOTINE 14MG/24HR PATCH TRANSDERM SCH (08:45)
[2019-10-07] MEDS ORDERED: SERTRALINE 100 MG TAB PO SCH (09:00)
--- NOTE | 2019-10-07 13:30 | P.PN ---
Progress Note - Text Progress Note Date: 10/07/19 Subjective: Patient was seen after morning group and was agreeable to speak to sign writer hand in the office. Patient claims that he feels his anxiety and mood have been gradually improving on the current medications however was requesting to have his Zoloft titrated up. He states that he is still feeling down and depressed about his home situation as his is filing for divorce. Patient did claim that he spoke with his brother over the phone who is willing to have him stay at his place upon discharge until his moves out than he is able to move back into his old house. Patient claims that he is trying to remain focused on the future and his children to take care of. Patient claims that his sleep was improved somewhat however claims that his having difficult time sleeping on the beds. He states that he has been going there most of the groups and trying to participate. Patient reflected back and states that he is thankful for being in the hospital and receiving care. He states that he is eating well. At this time patient denies any suicidal or homicidal ideations, intent or plan. Patient denies any auditory or visual hallucinations and does not endorse any paranoia. MENTAL STATUS EXAM: General Appearance: Patient appears to be stated age is alert, attempts to cooperate and has improving hygiene and grooming. Patient has fair eye contact. Behavior: Patient is calmly seated without any agitated behavior. Speech: Patient's speech is fluent and nonpressured. has attendance spoken. Mood/Affect: Patient reports their mood is depressed and anxious, mildly improving, affect is congruent and constrictive affect. Suicidality/Homicidality: Patient denies having any suicidal or homicidal ideation intent or plan. Perceptions: Patient denies any auditory or visual hallucinations. Though content/process: There is no evidence of any delusional thought content and thought process is linear and goal-directed Memory and concentration: AOX3, grossly intact for the purposes of this session. Can spell "WORLD" backwards Judgment and insight: poor, mildly improving. Assessment: Major depressive disorder, without psychotic features History of PTSD Alcohol abuse Cannabis use disorder Nicotine dependence PLAN: -Patient is admitted under voluntary status to [facility] for stabilization of psychiatric symptoms and safety. Patient signed adult voluntary form and medication consent and is placed in patient's chart. -Medications : Will increase Zoloft 150 mg daily for mood/anxiety & continue with trazodone 100 mg daily at bedtime for insomnia/mood. Continue with melatonin when necessary for sleep. -Ativan and Geodon PRN for agitation/aggression -Antibiotic ointment for self-inflicted wound on arm. -NRT - nicotine patch - on board for discharge planning. Likely discharge back home early next week. patient is willing to follow-up with [facility] upon discharge.
[2019-10-07] MEDS: SENNOSIDES 8.6 MG TAB PO SCH ×2 (14:44→21:52)
[2019-10-07] MEDS: traZODone HCL 100 MG TAB PO SCH (21:51)
[2019-10-07] MEDS: ACETAMINOPHEN TAB 325 MG TAB PO PRN (22:01)
[2019-10-08] MEDS: IBUPROFEN 800 MG TAB PO SCH ×3 (08:38→18:14)
[2019-10-08] MEDS: SENNOSIDES 8.6 MG TAB PO SCH ×2 (08:39→21:02)
[2019-10-08] MEDS: NICOTINE 14MG/24HR PATCH TRANSDERM SCH (08:39)
[2019-10-08] MEDS: BACITRACIN 500 UNIT/GM OINT 28.4 GM TUBE TOPICAL SCH ×2 (08:39→21:01)
[2019-10-08] MEDS: SERTRALINE 50 MG TAB PO SCH (08:40)
--- NOTE | 2019-10-08 16:58 | P.PN ---
Progress Note - Text Progress Note Date: 10/08/19 interval history: Patient reports that his mood is doing better overall. He states he talked to his today on the phone and is missing his 4-year-old birthday democrat today so he does feel some emotions related to that. He is using his coping skills and trying to think positive thoughts. He does feel like he is receiving benefit from his medication regimen. He notices that his anxiety level is improved. He plans on living with his brother after discharge. Mental status exam: He is alert and cooperative with the interview. His speech is fluent, not rapid or pressured. Thought processes are organized. His mood overall is improved. He does not verbalize any thoughts of harm to self or others. No evidence of psychosis or agitation. Plan: Patient will be maintained on current psychotropic medication regimen. We'll continue to monitor his ongoing response to treatment monitor for any medication side effects. We'll continue to cover this patient through the weekend.
[2019-10-08] MEDS: traZODone HCL 100 MG TAB PO SCH (21:02)
[2019-10-09 07:03] VITALS: PULSE 72
[2019-10-09] MEDS: BACITRACIN 500 UNIT/GM OINT 28.4 GM TUBE TOPICAL SCH ×2 (09:07→21:08)
[2019-10-09] MEDS: NICOTINE 14MG/24HR PATCH TRANSDERM SCH (09:08)
[2019-10-09] MEDS: IBUPROFEN 800 MG TAB PO SCH ×3 (09:08→17:08)
[2019-10-09] MEDS: SERTRALINE 50 MG TAB PO SCH (09:08)
[2019-10-09] MEDS: SENNOSIDES 8.6 MG TAB PO SCH ×2 (09:08→21:08)
[2019-10-09] MEDS: ACETAMINOPHEN TAB 325 MG TAB PO PRN (12:55)
--- NOTE | 2019-10-09 19:59 | P.PN ---
Progress Note - Text Progress Note Date: 10/09/19 interval history: Patient is seen with his mom and present with patient's consent. He was visiting with them in the dining room during visiting hours. Patient does talk about readiness for discharge tomorrow. He states that he has gained some weight in the hospital, seems to be eating well. He has a family meeting scheduled off with his mom for tomorrow. Mental status exam: He is alert and cooperative with the interview. His speech is fluent, not rapid or pressured. Thought processes are organized. His mood home overall seems improved. He does not verbalize any thoughts of harm to self or others. No evidence of psychosis or agitation. Plan: Patient will be maintained on current psychotropic medication regimen. Continue to monitor for any medication side effects and monitor his ongoing response to treatment. He does talk about plans for discharge tomorrow.
[2019-10-09] MEDS: traZODone HCL 100 MG TAB PO SCH (21:08)
[2019-10-10 07:11] VITALS: BP 109/63; TEMP 97.6
[2019-10-10] MEDS: IBUPROFEN 800 MG TAB PO SCH ×3 (08:55→17:15)
[2019-10-10] MEDS: SERTRALINE 50 MG TAB PO SCH (08:57)
[2019-10-10] MEDS: BACITRACIN 500 UNIT/GM OINT 28.4 GM TUBE TOPICAL SCH (08:57)
[2019-10-10] MEDS: NICOTINE 14MG/24HR PATCH TRANSDERM SCH (08:58)
--- NOTE | 2019-10-10 13:30 | P.DS ---
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 HPI: Patient presented to the hospital twice this past week, initially for intoxication and a legitimate overdose on temazepam and was discharged home after evaluation and returned the next day with increase in depression and suicidal ideations. Patient claims that he has been feeling an increase in his depression and anxiety for the past week and also suicidal thoughts as he cut his wrist in a suicide attempt earlier. Patient claims that he was in the [employer] in 2009 until 2013 in [employer] and was in active combat. He claims that since 2012 he has been feeling depressed and having PTSD symptoms including anxiety and intrusive thoughts. Patient claims that "I feel very low and mid dumb decisions". Patient spoke about going through a divorce at this time with his and they have been split since August and have been trying to work on their relationship since then. He states that "she is in love with her ask and is nothing I can do about it". Patient has poor eye contact and a depressed affect. He denies any guns or weapons in the dose. He was concerned and preoccupied during the interview about "losing my family". He endorsed anxiety, guilt, PTSD symptoms including recurring thoughts and nightmares night nightly. He states he gets 1-2 hours of sleep per night. Patient denies any suicidal or homicidal ideations intent or plan. At this time patient denies any auditory or visual hallucinations. Patient admits to using alcohol in the past couple of days, increasing his drinking of whiskey. He states that his last drink was 2 nights ago. He admits to smoking cigarettes daily and smoking marijuana daily, greater than 1 joint per day. PAST PSYCHIATRIC HISTORY: Patient states that he has never seen a psychiatrist before. Patient claims that he was [facility] up [facility] [place] this primary care physician who was giving him temazepam for sleep. Patient denies any previous psychiatric admits in the past. He denies any suicide attempts in the past. PMH: Hearing disorder, chronic pain ALLERGIES: as per EMR CHEMICAL DEPENDENCY HISTORY: as per HPI FAMILY PSYCHIATRIC/SUBSTANCE USE HISTORY: States that depression is prevalent in his family. SOCIAL HISTORY: He claims that he was born and raised in [facility] [facility] and currently is working on his associates degree in [employer] and [employer] at [employer]. Patient states that he was in the [employer] from 2009 2013 and served in [employer] and was an active combat. MENTAL STATUS EXAM: General Appearance: Patient appears to be stated age is alert, attempts to cooperate and has poor hygiene and grooming. Patient has good eye contact looking at the ground and slouched over. Behavior: Patient is calmly seated without any agitated behavior. Speech: Patient's speech is fluent and nonpressured. Soft-spoken. Mood/Affect: Patient reports their mood is good, affect is congruent. Suicidality/Homicidality: Patient denies having any suicidal or homicidal ideation intent or plan. Perceptions: Patient denies any auditory or visual hallucinations. Though content/process: There is no evidence of any delusional thought content and thought process is linear and goal-directed. Memory and concentration: AOX3, grossly intact for the purposes of this session. Can spell "WORLD" backwards Judgment and insight: Fair STRENGTHS/WEAKNESSES: strength is that patient is resilient, weaknesses that patient is impulsive and has poor judgment. INTELLECT: average IMPRESSIONS: Major depressive disorder, without psychotic features History of PTSD Alcohol abuse Cannabis use disorder Nicotine dependence Hospital Course: Patient was admitted on a voluntary basis, placed on routine observation in group and activity therapy were ordered. Patient was also ordered routine laboratory studies and a medical consultation was also ordered. Patient also was returned to his prior medications for his medical problems. Patient slowly improved, the patient was placed on serial protocol for his alcohol abuse. The patient is started reporting him improvement in his mood and anxiety. The patient was cooperative and compliant with the treatment. He attended and participated actively in milieu therapy. He was sleeping and eating well and reported that his mood had improved. His Zoloft was started at 50 mg by mouth daily and he was also started on trazodone 50 mg by mouth daily at bedtime. Patient was also started on melatonin when necessary. Patient reported no side effects from the medication. The patient's Zoloft was increased to 100 mg by mouth daily and trazodone was increased to 100 mg by mouth daily at bedtime to help him with his mood and insomnia. The patient tolerated the changes in medications without any problems. Patient started showing significant improvement in mood and functioning. He was pleasant and cooperative on the unit. Discharge plans were initiated. A family meeting was done regarding discharge planning. The patient's family expressed satisfaction with the treatment. The patient was discharged home on 10/10/2019. Discharge Mental Status: Appearance/Attitude: Patient is neatly and appropriately dressed, makes eye contact and was cooperative. Behavior: Patient did not display any psychomotor agitation or retardation. Speech/Language: Patient's speech was spontaneous of normal volume and rhythm and he was coherent Thought Process: Patient was goal-directed there is no evidence of loose association or flight of ideas Thought Content: Patient denied any auditory or visual hallucinations no delusions or paranoid ideation were elicited. Patient states that he somewhat anxious about the hospital, states that he has housing arranged starting on Thursday out a room and board, will be staying with a friend for the first night until he has money and states he'll check into a hotel. Patient has been sleeping and eating well on the unit. He reports his mood has improved. Suicidal/Homicidal Ideation: Patient denies any current suicidal or homicidal ideation Sensorium/Cognition: Patient is alert and oriented to person, place, and time and his recent and remote memory were grossly intact Mood/Affect: Patient's mood is more positive and his affect is appropriate to his mood Insight/Judgment: Patient's insight and judgment are fair Discharge Plan: Patient will be discharged home with his mother. Patient will continue on Zoloft 100 mg by mouth every morning and trazodone 100 mg by mouth daily at bedtime. Follow-up appointment was scheduled for 10/13/2019. Patient Condition at Discharge: Stable Plan - Discharge Summary New Discharge Prescriptions: New Bacitracin Oint 1 applic TOPICAL BID applic traZODone HCL [Desyrel] 100 mg PO HS 30 Days tab Nicotine 14Mg/24Hr Patch [Habitrol] 1 patch TRANSDERM DAILY 14 Days patch Melatonin 6 mg PO HS PRN 30 Days tablet PRN Reason: Insomnia Ibuprofen [Motrin] 800 mg PO TID-W/MEALS tab Sertraline [Zoloft] 150 mg PO DAILY 30 Days tab Discontinued Ibuprofen [Motrin] 800 mg PO DAILY PRN PRN Reason: Pain Discharge Medication List Bacitracin Oint 1 applic TOPICAL BID applic 10/10/19 [Rx] Ibuprofen [Motrin] 800 mg PO TID-W/MEALS tab 10/10/19 [Rx] Melatonin 6 mg PO HS PRN 30 Days tablet 10/10/19 [Rx] Nicotine 14Mg/24Hr Patch [Habitrol] 1 patch TRANSDERM DAILY 14 Days patch 10/10/19 [Rx] Sertraline [Zoloft] 150 mg PO DAILY 30 Days tab 10/10/19 [Rx] traZODone HCL [Desyrel] 100 mg PO HS 30 Days tab 10/10/19 [Rx] Follow up Appointment(s)/Referral(s): [facility] [Outside] - 10/13/19 12:30 pm (Terry Stinson ) Chpee Jerez MD [Primary Care Provider] - 1-2 days Activity/Diet/Wound Care/Special Instructions: Activity and diet as tolerated. Avoid the use of street drugs and alcohol. Take all medications as prescribed. When you are in need of refills on your medications please contact your medical provider and/or outpatient psychiatrist to have this done. Please go to scheduled outpatient appointment for aftercare treatment. If symptoms return or become worse, call the crisis line at and/or go to the nearest emergency room for evaluation. Discharge Disposition: HOME SELF-CARE
== END 2019-10-10 17:24 | disposition home or self-care (01) | DRG 897 ==
LOC: EC 18:43 → 3MHU 10-04 03:56
PROVIDERS: ADMIT Psychiatry & Neurology Psychiatry; ATTEND Psychiatry & Neurology Psychiatry
DX: F10.94 Alcohol use, unspecified with alcohol-induced mood disorder (principal); F12.99 Cannabis use, unspecified with unspecified cannabis-induced disorder; F17.210 Nicotine dependence, cigarettes, uncomplicated; F32.9 Major depressive disorder, single episode, unspecified; F43.10 Post-traumatic stress disorder, unspecified; G47.00 Insomnia, unspecified; H91.90 Unspecified hearing loss, unspecified ear; S61.512A Laceration without foreign body of left wrist, initial encounter; Z79.899 Other long term (current) drug therapy; Z81.8 Family history of other mental and behavioral disorders
CPT/HCPCS: 36415; 80053; 80061; 80076; 80320; 80329; 81001; 82075; 83036; 83520; 84443; 85025; 99285

== ENCOUNTER 2020-07-03 09:40 | Emergency (ER) | payer BC ==
[2020-07-03 09:43] VITALS: RESP 18
[2020-07-03] MEDS ORDERED: LIDOCAINE 1% INJ 10MG/ML (20 ML MDV) SQ ONE (09:54)
--- NOTE | 2020-07-03 09:56 | ED ---
General Adult HPI - General Chief complaint: Wound/Laceration Stated complaint: finger lac Time Seen by Provider: 07/03/20 09:44 Source: patient, RN notes reviewed Mode of arrival: ambulatory Limitations: no limitations - History of Present Illness Initial comments: 30-year-old male with a past medical history of hearing disorder presents to the emergency department for a chief complaint of left finger laceration. Patient reports that he was cleaning a glass and it broke and he cut himself. Patient denies any difficulty moving his finger. Denies any numbness or tingling in the finger. Patient had wrapped it with hair ties to stop it from bleeding, these were removed upon arrival and the wound was wrapped. Patient is up-to-date on tetanus as of 1 year ago. Patient has no other complaints at this time including shortness of breath, chest pain, abdominal pain, nausea or vomiting, headache, or visual changes. - Related Data Home Medications Medication Instructions Recorded Confirmed Ibuprofen [Motrin Ib] 400 mg PO Q8H PRN 07/03/20 07/03/20 Sertraline [Zoloft] 200 mg PO DAILY 07/03/20 07/03/20 Allergies Allergy/AdvReac Type Severity Reaction Status Date / Time adhesive Allergy Rash/Hives Verified 07/03/20 10:02 Review of Systems ROS Statement: Those systems with pertinent positive or pertinent negative responses have been documented in the HPI. ROS Other: All systems not noted in ROS Statement are negative. Past Medical History Past Medical History: Hearing Disorder / Deafness History of Any Multi-Drug Resistant Organisms: None Reported Past Surgical History: Ear Surgery Additional Past Surgical History / Comment(s): eye Past Psychological History: No Psychological Hx Reported Smoking Status: Current every day smoker Past Alcohol Use History: Occasional Past Drug Use History: Marijuana General Exam Limitations: no limitations General appearance: alert, in no apparent distress Head exam: Present: atraumatic, normocephalic, normal inspection Eye exam: Present: normal appearance, PERRL, EOMI. Absent: scleral icterus, conjunctival injection, periorbital swelling ENT exam: Present: normal exam, mucous membranes moist Neck exam: Present: normal inspection. Absent: tenderness, meningismus, lymphadenopathy Respiratory exam: Present: normal lung sounds bilaterally. Absent: respiratory distress, wheezes, rales, rhonchi, stridor Cardiovascular Exam: Present: regular rate, normal rhythm, normal heart sounds Extremities exam: Present: other (Patient has a 2 cm flap-like laceration noted to the middle phalanx of the left fifth digit, ulnar aspect. No evidence of tendon damage. No evidence of obvious foreign body. Full ROM to 5th digit) Course Vital Signs 07/03/20 07/03/20 09:41 10:49 Temperature 98.0 F 98 F Pulse Rate 100 62 Respiratory 18 18 Rate Blood Pressure 127/83 116/78 O2 Sat by Pulse 99 97 Oximetry Procedures - Laceration Laceration #1 Consent Obtained: verbal consent Indication: laceration Site: hand Size (cm): 2 Description: flap Depth: simple, single layer Anesthetic Used: lidocaine 1% Anesthesia Technique: nerve block Amount (mls): 4 Pre-repair: wound explored, irrigated extensively (With saline pressure irrigation), deep structures intact (No evidence of tendon laceration) Type of Sutures: nylon Size of Sutures: 5-0 Number of Sutures: 5 Technique: simple, interrupted Patient Tolerated Procedure: well, no complications Medical Decision Making - Medical Decision Making Patient presents for laceration of the left fifth digit. Full range of motion. No obvious tendon injury. No evidence of foreign body. Wound was irrigated thoroughly. Repaired with 5 simple interrupted sutures. Bacitracin applied. Care instructions discussed. Return parameters discussed. Disposition Clinical Impression: Laceration Disposition: HOME SELF-CARE Condition: Good Instructions (If sedation given, give patient instructions): Care For Your Stitches (ED), Laceration (ED) Additional Instructions: These keep the area dry and covered for the first 24 hours. After that, wash twice daily with gentle soap and water. Apply antibiotic ointment after U wash your finger. You may keep covered for the first 3-5 days. Follow-up with your doctor in one to 2 days for a recheck. Return in 7-10 days for suture removal. Is patient prescribed a controlled substance at d/c from ED?: No Referrals: Chepe Jerez MD [Primary Care Provider] - 1-2 days Time of Disposition: 10:53
--- NOTE | 2020-07-03 10:27 | XR ---
Fifth digit left hand HISTORY: Laceration 3 views of the fifth digit left hand Bone mineralization, joint spaces and alignment are maintained. No radiopaque foreign body. IMPRESSION: Negative fifth digit right hand.
[2020-07-03] MEDS ORDERED: LIDOCAINE 1%-EPI 1:100,000 20 ML VIAL SQ STA (10:39)
[2020-07-03] MEDS ORDERED: BACITRACIN OINT 1 EACH PACKET TOPICAL ONE (10:48)
[2020-07-03 10:51] VITALS: BP 116/78; PULSE 62; TEMP 98
== END 2020-07-03 10:57 | disposition home or self-care (01) ==
LOC: EC 09:40
DX: S61.217A Laceration without foreign body of left little finger without damage to nail, initial encounter (principal); F17.200 Nicotine dependence, unspecified, uncomplicated; H91.90 Unspecified hearing loss, unspecified ear; Z91.048 Other nonmedicinal substance allergy status; W25.XXXA Contact with sharp glass, initial encounter; Y93.G1 Activity, food preparation and clean up; Y92.009 Unspecified place in unspecified non-institutional (private) residence as the place of occurrence of the external cause
CPT/HCPCS: 73140; 12001; 99283; J2001

== ENCOUNTER → 2020-11-02 | Outpatient (CLI) | payer BC | END | disposition home or self-care (01) | LOC: LABWHC1 13:35 | PROVIDERS: ATTEND Emergency Medicine | DX: Z20.828 Contact with and (suspected) exposure to other viral communicable diseases (principal) | CPT/HCPCS: 87502; U0003; C9803; U0005 ==

== ENCOUNTER → 2020-11-07 | Outpatient (CLI) | payer BC ==
--- NOTE | 2020-11-07 14:03 | XR ---
EXAMINATION TYPE: XR chest 2V DATE OF EXAM: 11/07/2020 COMPARISON: NONE HISTORY: Dyspnea. TECHNIQUE: Frontal and lateral views of the chest are obtained. FINDINGS: There is no focal air space opacity, pleural effusion, or pneumothorax seen. The cardiac silhouette size is within normal limits. Spine is straightened on lateral view. IMPRESSION: No acute cardiopulmonary process.
== END | disposition home or self-care (01) ==
LOC: RADXRMAIN 13:29
PROVIDERS: ATTEND Nurse Practitioner
DX: R06.00 Dyspnea, unspecified (principal)
CPT/HCPCS: 71046

== ENCOUNTER 2021-07-08 06:41 | Emergency (ER) | payer BC, OTHER ==
--- NOTE | 2021-07-08 07:10 | ED ---
URI HPI - General Chief Complaint: Upper Respiratory Infection Stated Complaint: SOB,Cough Time Seen by Provider: 07/08/21 06:53 Source: patient, RN notes reviewed Mode of arrival: ambulatory Limitations: no limitations - History of Present Illness Initial Comments: 31-year-old male presents emergency Department chief complaint of cough congestion bodyaches sweats chills. Patient states that symptoms started over the last few days that has worsened. Patient states he has a dry hacking cough he has minimal shortness breath he did have some diarrhea but he reports this may be from his exlax No vomiting patient had multiple sick contacts patient hasa past medical history denies chest pain he has a mild scratchy sore throat, runny nose and states he's been sweating with no reported fever - Related Data Home Medications Medication Instructions Recorded Confirmed Ibuprofen [Motrin Ib] 600 mg PO Q8H PRN 07/03/20 07/08/21 Allergies Allergy/AdvReac Type Severity Reaction Status Date / Time adhesive Allergy Rash/Hives Verified 07/08/21 07:29 Review of Systems ROS Statement: Those systems with pertinent positive or pertinent negative responses have been documented in the HPI. ROS Other: All systems not noted in ROS Statement are negative. Past Medical History Past Medical History: Hearing Disorder / Deafness History of Any Multi-Drug Resistant Organisms: None Reported Past Surgical History: Ear Surgery Additional Past Surgical History / Comment(s): eye Past Psychological History: No Psychological Hx Reported Smoking Status: Current every day smoker Past Alcohol Use History: Occasional Past Drug Use History: None Reported General Exam Limitations: no limitations General appearance: alert, in no apparent distress, other (Diaphoretic) Head exam: Present: atraumatic, normocephalic, normal inspection Eye exam: Present: normal appearance, PERRL, EOMI. Absent: scleral icterus, conjunctival injection, periorbital swelling ENT exam: Present: normal exam, normal oropharynx, mucous membranes moist Neck exam: Present: normal inspection, full ROM. Absent: tenderness, meningismus, lymphadenopathy Respiratory exam: Present: normal lung sounds bilaterally. Absent: respiratory distress, wheezes, rales, rhonchi, stridor Cardiovascular Exam: Present: regular rate, normal rhythm, normal heart sounds. Absent: systolic murmur, diastolic murmur, rubs, gallop, clicks Neurological exam: Present: alert, oriented X3 Skin exam: Present: warm, intact, normal color, diaphoretic. Absent: dry, rash Course Vital Signs 07/08/21 06:45 Temperature 98.8 F Pulse Rate 105 H Respiratory 22 Rate Blood Pressure 106/75 O2 Sat by Pulse 98 Oximetry Medical Decision Making - Medical Decision Making X-rays unremarkable., Patient is positive for COVID-19. Patient did receive monoclonal antibodies will be discharged in stable condition return parameters were discussed. - Lab Data Lab Results 07/08/21 Range/Units 07:30 Coronavirus (PCR) Detected A (Not Detectd) Disposition Clinical Impression: COVID-19 Disposition: HOME SELF-CARE Condition: Stable Instructions (If sedation given, give patient instructions): Coronavirus Disease 2019 (COVID-19) Additional Instructions: Please return to the Emergency Department if symptoms worsen or any other concerns. Is patient prescribed a controlled substance at d/c from ED?: No Referrals: Chepe Jerez MD [Primary Care Provider] - 1-2 days Time of Disposition: 08:58
--- NOTE | 2021-07-08 08:20 | XR ---
EXAMINATION TYPE: XR chest 2V DATE OF EXAM: 07/08/2021 COMPARISON: Chest x-ray 11/07/2020 HISTORY: Cough and shortness of breath TECHNIQUE: Frontal and lateral views of the chest are obtained. FINDINGS: There is no focal air space opacity, pleural effusion, or pneumothorax seen. The cardiac silhouette size is within normal limits. Suspect some bronchial wall thickening. The osseous structu res are intact. IMPRESSION: Correlate for bronchitis, reactive airways disease
[2021-07-08] MEDS ORDERED: CASIRIVIMAB/IMDEVIMAB (EUA) 1,200 MG in SODIUM CHLORIDE 0.9% 100 ML IVPB ONE (09:30)
[2021-07-08] MEDS ORDERED: SODIUM CHLORIDE 0.9% 50 ML IVPB ONE (10:00)
[2021-07-08 11:29] VITALS: BP 122/82; PULSE 89; RESP 16; TEMP 99.2
== END 2021-07-08 12:22 | disposition home or self-care (01) ==
LOC: EC 06:41
DX: U07.1 COVID-19 (principal); R61 Generalized hyperhidrosis; H91.90 Unspecified hearing loss, unspecified ear; F17.200 Nicotine dependence, unspecified, uncomplicated; Z91.09 Other allergy status, other than to drugs and biological substances
CPT/HCPCS: 87635; 71046; 99285; 96365; 96361; Q0243

== ENCOUNTER 2022-08-06 18:09 | Emergency (ER) | payer OTHER, BC ==
[2022-08-06 18:26] VITALS: BP 139/92; PULSE 97; RESP 16; TEMP 97
--- NOTE | 2022-08-06 20:49 | XR ---
EXAMINATION TYPE: XR finger RT DATE OF EXAM: 08/06/2022 8:32 PM INDICATION: Patient age:Male; 32 years old; Reason for study: thumb laceration; [facility]. COMPARISON: None TECHNIQUE: Frontal, lateral and oblique views of the right thumb were obtained. FINDINGS: Normal alignment of the visualized joints. No acute osseous pathology is identified. No e vidence of soft tissue swelling. Laceration not well visualized. No radiopaque foreign body. IMPRESSION: 1. No acute osseous pathology. 2. No radiopaque foreign body.
[2022-08-06] MEDS ORDERED: LIDOCAINE 1% INJ 10MG/ML (20 ML MDV) SQ ONE (20:50)
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
== END 2022-08-06 21:39 | disposition home or self-care (01) ==
LOC: EC 18:09
DX: S61.011A Laceration without foreign body of right thumb without damage to nail, initial encounter (principal); F17.200 Nicotine dependence, unspecified, uncomplicated; Z91.048 Other nonmedicinal substance allergy status; W26.8XXA Contact with other sharp object(s), not elsewhere classified, initial encounter
CPT/HCPCS: 73140; 12001; 99283; J2001